=== PATIENT | female | born 1955 | race Caucasian/White ===

== ENCOUNTER 2016-12-15 14:50 | Emergency (ER) | payer OTHER ==
[~2016-12-15] VITALS: Ht 172.7 cm; Wt 110.0 kg
[~2016-12-15 14:50] MED LIST: CIPR500T2 PO; DEPA500T3 PO; DICL-86 PO; LORT7.5T3 PO; SUMA100T2 PO
[2016-12-15 14:56] VITALS: BP 181/83; PULSE 70; RESP 16; TEMP 97.4; O2SAT 100
[2016-12-15] MEDS ORDERED: SODIUM CHLOR 0.9% 1000 ML INJ 1,000 ML IV ONE (15:06)
[2016-12-15 15:12] VITALS: O2SAT 98
[2016-12-15] MEDS ORDERED: diphenhydrAMINE HCL 50 MG/ML VIAL IVP ONE (15:15)
[2016-12-15] MEDS ORDERED: SODIUM CHLORIDE 0.9% FLUSH 10 ML FLUSH IVF PRN (15:15)
[2016-12-15] MEDS ORDERED: PROCHLORPERAZINE INJ 10 MG/2 ML VIAL IVP ONE (15:15)
--- NOTE | 2016-12-15 15:15 | PD ---
HPI . Headache Chief Complaint: Headache Time Seen by Provider: 15:04 Travel History International Travel<30 days: No Contact w/Intl Traveler<30days: No Traveled to known affect area: No History of Present Illness HPI This patient presents with a chief complaint of an acute headache. Onset was 8 AM. She states that it is getting progressively worse. It is severe. It is now associated with nausea and vomiting. She states it feels like her head is pointing to explode. The pain is located in the forehead and is worse on the left than the right. She said it is similar to previous migraine headaches. She states that it has been a long time since she had a migraine. No treatment prior to arrival. PFSH Past Medical History Diminished Hearing: No GERD: Yes Immunizations Current: No Migraines: Yes Past Surgical History Appendectomy: Yes (11/15/08) Tonsillectomy: Yes Other Surgery: Yes (BUNIONECTOMY) Social History Alcohol Use: No Tobacco Use: No Substance Use: No Allergies-Medications (Allergen,Severity, Reaction): Coded Allergies: No Known Allergies (Verified Adverse Reaction, Unknown, 12/15/16) Reported Meds & Prescriptions Reported Meds & Active Scripts Active Reported Excedrin Migraine Caplet (Aspirin/Acetaminophen/Caffeine) 250 Mg-250 Mg-65 Mg Tablet 1 Tab P-ARTICULR Atorvastatin (Atorvastatin Calcium) 10 Mg Tab 10 Mg PO HS Metformin (Metformin HCl) 500 Mg Tab 1,000 Mg PO BIDPC Gabapentin 100 Mg Cap 200 Mg PO BID Cymbalta DR (Duloxetine HCl) 60 Mg Capdr 60 Mg PO BID Flexeril (Cyclobenzaprine HCl) 10 Mg Tab 10 Mg PO DAILY Meloxicam 7.5 Mg Tab 7.5 Mg PO BID Tramadol (Tramadol HCl) 50 Mg Tab 100 Mg PO TID PRN Review of Systems Except as stated in HPI: all other systems reviewed are Neg General / Constitutional: No: Fever, Chills Eyes: No: Blurred Vision HENT: Positive: Headaches Gastrointestinal: Positive: Nausea, Vomiting Physical Exam Narrative GENERAL: Patient is awake and alert. She is sitting leaning forward with an emesis bag in her lap. SKIN: Good color. She is damp. HEAD: Normocephalic/atraumatic. Scalp is nontender. EYES: Pupils are equal. Extraocular movements are intact. NECK: Supple. RESPIRATORY: Nonlabored respirations. MUSCULOSKELETAL: Atraumatic. NEUROLOGICAL: A and O 3. Cranial nerves are grossly intact. She is moving all 4 extremities equally. PSYCHIATRIC: Appropriate mood and affect. Data Data Last Documented VS Vital Signs Date Time Temp Pulse Resp B/P (MAP) Pulse Ox O2 Delivery O2 Flow Rate FiO2 12/15/16 16:28 Room Air 12/15/16 16:28 77 16 153/82 (105) 98 12/15/16 14:56 97.4 Orders Orders Ecg Monitoring (12/15/16 15:06) Iv Access Insert/Monitor (12/15/16 15:06) Oximetry (12/15/16 15:06) Sodium Chloride 0.9% Flush (Ns Flush) (12/15/16 15:15) Prochlorperazine Inj (Compazine Inj) (12/15/16 15:15) Diphenhydramine Inj (Benadryl Inj) (12/15/16 15:15) Sodium Chlor 0.9% 1000 Ml Inj (Ns 1000 M (12/15/16 15:06) Ketorolac Inj (Toradol Inj) (12/15/16 16:30) MDM Medical Decision Making Medical Screen Exam Complete: Yes Emergency Medical Condition: Yes Differential Diagnosis Differential diagnosis of headache includes but is not limited to migraine, muscle contraction headache, brain tumor, brain bleed Narrative Course This patient presents with an acute headache. It feels like previous migraines. It is associated with nausea and vomiting. She will be treated with IV fluids, IV Compazine and IV Benadryl. Patient reports that her headache is about 50% improved with this treatment. I have added Toradol. The patient reports that her headache is now almost completely resolved. She states she feels much better. Diagnosis Primary Impression: Migraine headache Qualified Codes: G43.009 - Migraine without aura, not intractable, without status migrainosus Patient Instructions: General Instructions, Migraine Headache (DC) Med/Other Pt SpecificInfo: Prescription(s) given Scripts Xflfesfcux-Xqwkajdzfojnp-Czxdsula (Fioricet) 50-300-40 Mg Cap 1 CAP PO Q4H Y for HEADACHE, #10 CAP 0 Refills Prov: Almita Bojorquze MD 12/15/16 Disposition: 01 DISCHARGE HOME Condition: Stable Almita Bojorquez MD Dec 15, 2016 15:15
[2016-12-15 15:20] VITALS: BP 142/71; PULSE 87; RESP 18
[2016-12-15] MEDS ORDERED: CYMB60CA PO (15:27)
[2016-12-15] MEDS ORDERED: GABA100C4 PO (15:27)
[2016-12-15] MEDS ORDERED: METF500T PO (15:27)
[2016-12-15] MEDS ORDERED: EXCETAB31 P-ARTICULR (15:27)
[2016-12-15] MEDS ORDERED: TRAM50TA PO (15:27)
[2016-12-15] MEDS ORDERED: ATOR10TA15 PO (15:27)
[2016-12-15] MEDS ORDERED: CYCL10TA PO (15:27)
[2016-12-15] MEDS ORDERED: MELO7.5T27 PO (15:27)
[2016-12-15 16:28] VITALS: BP 153/82; PULSE 77; RESP 16; O2SAT 98
[2016-12-15] MEDS ORDERED: KETOROLAC TROMETHAMINE 30 MG/ML (IVP) VIAL IV PUSH ONE (16:30)
[2016-12-15] MEDS ORDERED: BUTA1CAP PO (16:44)
[2016-12-15 17:07] VITALS: BP 150/70
== END 2016-12-15 17:08 | disposition home or self-care (01) ==
LOC: PHED 14:50
DX: G43.009 Migraine without aura, not intractable, without status migrainosus (principal); Z87.19 Personal history of other diseases of the digestive system; Z86.69 Personal history of other diseases of the nervous system and sense organs
CPT/HCPCS: 96361; 96374; 96375; 99284; J0780; J1200; J1885; J7030